=== PATIENT | female | born 1975 | race Caucasian/White ===

== ENCOUNTER 2020-08-29 14:12 | Emergency (ER) | payer OTHER ==
[~2020-08-29] VITALS: Ht 152.4 cm; Wt 52.2 kg
--- NOTE | 2020-08-29 14:12 | NUR ---
Patient BIBA BLS, transferred to bed 8. RN evaluating the patient at bedside.
[2020-08-29 14:27] VITALS: BP 148/67
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
[2020-08-29] MEDS ORDERED: fentaNYL citrate 0.05 MG/ML VIAL IVP ONE (15:20)
[2020-08-29] MEDS ORDERED: NACL 0.9% 1,000 ML IV ONE (15:20)
[2020-08-29 15:50] LABS: BASOPHILS % (AUTO) 0.2 % (0.0-2.0); EOSINOPHILS # (AUTO) 0.2 K/uL (0-0.4); EOSINOPHILS % (AUTO) 1.7 % (0.0-4.0); HEMATOCRIT 37.9 % (36-48); HEMOGLOBIN 12.5 g/dL (12.0-16.0); LYMPHOCYTES # (AUTO) 2.2 K/uL (2.5-16.5); LYMPHOCYTES % (AUTO) 24.2 % (20.5-51.1); MEAN CORPUSCULAR HEMOGLOBIN 29 pg (27-31); MEAN CORPUSCULAR HGB CONC 33 g/dL (33-37); MEAN CORPUSCULAR VOLUME 86.9 fL (80-94); MONOCYTES # (AUTO) 0.6 K/uL (0.8-1.0); NEUTROPHILS # (AUTO) 6.3 K/uL (1.8-7.7); NEUTROPHILS % (AUTO) 67.9 % (42.2-75.2); PLATELET COUNT (AUTO) 269 K/uL (140-450); RED BLOOD CELL COUNT(AUTO) 4.36 MIL/uL (4.20-5.40); RED CELL DISTRIBUTION WIDTH 12.9 % (11.6-13.7); WHITE BLOOD COUNT (AUTO) 9.2 K/uL (4.8-10.8)
[2020-08-29 16:03] LABS: PROTHROMBIN TIME 10.3 secs (10.8-13.4)
[2020-08-29 16:12] LABS: ANION GAP 10.7 (8-16); CARBON DIOXIDE 28.9 mmol/L (21-32); CREATININE 0.7 mg/dL (0.6-1.3); POTASSIUM 3.6 mmol/L (3.5-5.1); TOTAL BILIRUBIN 0.3 mg/dL (0.0-1.0)
--- NOTE | 2020-08-29 18:45 | NUR ---
APPLIED THUMB SPICA SPLINT TO RIGHT HAND WITHOUT ANY ISSUES
[2020-08-29] MEDS ORDERED: ACET-2619 PO (18:48)
[2020-08-29 19:00] VITALS: BP 145/64
== END 2020-08-29 19:01 | disposition home or self-care (01) ==
LOC: MED 14:12
DX: S43.402A Unspecified sprain of left shoulder joint, initial encounter (principal); S53.402A Unspecified sprain of left elbow, initial encounter; S63.502A Unspecified sprain of left wrist, initial encounter; S60.511A Abrasion of right hand, initial encounter; S40.812A Abrasion of left upper arm, initial encounter; Z98.890 Other specified postprocedural states; V89.2XXA Person injured in unspecified motor-vehicle accident, traffic, initial encounter; Y93.89 Activity, other specified; Y92.89 Other specified places as the place of occurrence of the external cause; Y99.8 Other external cause status
CPT/HCPCS: 29125; 36415; 71045; 73020; 73070; 73090; 73100; 73120; 80053; 83690; 84702; 85025; 85610; 90471; 90715; 96361; 96374; 99284; J3010; J7030